=== PATIENT | male | born 1940 | race Caucasian/White ===

== ENCOUNTER 2018-08-18 17:13 | Observation (INO) | payer OTHER ==
[2018-08-18 18:07] LABS: #Eosinphils 0.5 thou/uL (0.0-0.7); #Lymphocytes 1.9 thou/uL (1.20-3.40); #Neutrophils 5.4 thou/uL (1.40-6.50); %Basophils 0.4 % (0.0-1.0); %Eosinophils 6.1 % (0.0-10.0); %Lymphocytes 21.5 % (21.0-51.0); %Neutrophils 61.1 % (42.0-75.0); Hemoglobin 15.9 g/dL (14.0-18.0); Mean Corpuscular HGB CONC 31.7 g/dL (32.0-36.0); Mean Corpuscular Hemoglobin 29.1 pg (27.0-31.0); Mean Platelet Volume 8.4 fL (7.4-10.4); Platelet Count 240 thou/uL (130-400); Red Blood Cell (RBC) Count 5.47 mill/uL (4.70-6.10); White Blood Cell (WBC) Count 8.8 thou/uL (4.8-10.8)
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
[2018-08-18 18:28] LABS: ALT (SGPT) 11 U/L (8-55); AST (SGOT) 14 U/L (5-34); Albumin 3.9 g/dL (3.4-4.8); Alkaline Phosphatase 86 U/L (40-150); Anion Gap 14 mmol/L (10-20); BUN (Urea Nitrogen) 15 mg/dL (8.4-25.7); Bilirubin, Total 0.5 mg/dL (0.2-1.2); Calc. Creatinine Clearance 0 mL/min (70-130); Calcium 9.5 mg/dL (7.8-10.44); Carbon Dioxide 24 mmol/L (23-31); Chloride 104 mmol/L (98-107); Estimated GFR-MDRD Greater than 90; Globulin 3.6 g/dL (2.4-3.5); Glucose 107 mg/dL (83-110); Magnesium 1.9 mg/dL (1.6-2.6); Protein, Total 7.5 g/dL (5.8-8.1); Sodium 138 mmol/L (136-145)
[2018-08-18] MEDS ORDERED: Ondansetron ODT 4 MG TAB SL PRN (21:41)
[2018-08-18] MEDS ORDERED: Ondansetron PF 4 MG/2 ML Vial IVP PRN (21:41)
[2018-08-18] MEDS ORDERED: Acetaminophen 325 MG TAB PO PRN (21:41)
[2018-08-18 21:52] VITALS: BMI 27.5
[2018-08-18 22:00] LABS: Troponin I Less than 0.010 ng/mL (< 0.028)
[2018-08-19 00:40] LABS: Troponin I 0.034 ng/mL (< 0.028)
[2018-08-19 03:40] LABS: #Basophils 0.1 thou/uL (0.0-0.2); #Eosinphils 0.5 thou/uL (0.0-0.7); #Lymphocytes 2.2 thou/uL (1.20-3.40); #Monocytes 1.1 thou/uL (0.11-0.59); #Neutrophils 4.7 thou/uL (1.40-6.50); %Basophils 0.7 % (0.0-1.0); %Eosinophils 5.6 % (0.0-10.0); %Lymphocytes 25.7 % (21.0-51.0); %Monocytes 12.4 % (0.0-10.0); %Neutrophils 55.6 % (42.0-75.0); Hemoglobin 15.6 g/dL (14.0-18.0); Mean Corpuscular HGB CONC 31.7 g/dL (32.0-36.0); Mean Corpuscular Hemoglobin 29.4 pg (27.0-31.0); Mean Corpuscular Volume 92.7 fL (78.0-98.0); Mean Platelet Volume 8.3 fL (7.4-10.4); Platelet Count 211 thou/uL (130-400); RBC Distribution Width 13.1 % (11.5-14.5); White Blood Cell (WBC) Count 8.5 thou/uL (4.8-10.8)
[2018-08-19 04:03] LABS: Anion Gap 9 mmol/L (10-20); BUN (Urea Nitrogen) 14 mg/dL (8.4-25.7); Calc. Creatinine Clearance 85 mL/min (70-130); Calcium 9.9 mg/dL (7.8-10.44); Carbon Dioxide 28 mmol/L (23-31); Chloride 105 mmol/L (98-107); Cholesterol 116 mg/dl (< 200 Desired); Estimated GFR-MDRD 86; Glucose 119 mg/dL (83-110); HDL Cholesterol 29 mg/dL (>60 Neg Risk); LDL Cholesterol, Calculated 64 mg/dL; Potassium 3.9 mmol/L (3.5-5.1); Sodium 138 mmol/L (136-145); Triglycerides 116 mg/dL (Less than 150); Troponin I 0.024 ng/mL (< 0.028)
[2018-08-19] MEDS ORDERED: PROVENTIL INHALER 6.7 G (200 INHALATIONS) INH PRN (09:27)
[2018-08-19] MEDS ORDERED: Regadenoson 0.4 MG/5 ML SYRINGE ONE (10:20)
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
--- NOTE | 2018-08-19 15:20 | NM ---
NM Cardiac Stress W EF WF HISTORY: Chest pain COMPARISON: None. FINDINGS: Examination is performed using 27 mCi 90 9M technetium sestamibi and stress and 10 on the r esting images. Shows a normal distribution of radiopharmaceutical without signs of ischemia or scar. Wall motion: Symmetric contractility of the ventricle. Left ventricular ejection fraction: The calculated left ventricular ejection fraction is 56%. Correla te with echocardiogram IMPRESSION: No evidence of ischemia.
[2018-08-19] MEDS: hydrALAZINE 20 MG/ML VIAL SLOW IVP PRN (17:02)
[2018-08-19] MEDS ORDERED: Mometasone 100 MCG HFA INHALER INH SCH (19:15)
[2018-08-19] MEDS ORDERED: Atorvastatin Calcium 10 MG TAB PO SCH (21:00)
[2018-08-19] MEDS ORDERED: Fluticasone Propionate HFA 110 MCG AER INH SCH (21:00)
[2018-08-19] MEDS ORDERED: Prevnar 13-Val Conj/PF 0.5 ML SYRINGE IM ONE (21:00)
[2018-08-19] MEDS ORDERED: Pravastatin Sodium 40 MG TAB PO SCH (21:00)
[2018-08-20 05:01] LABS: #Eosinphils 0.4 thou/uL (0.0-0.7); #Monocytes 1.2 thou/uL (0.11-0.59); #Neutrophils 6.3 thou/uL (1.40-6.50); %Basophils 0.3 % (0.0-1.0); %Eosinophils 4.3 % (0.0-10.0); %Lymphocytes 20.2 % (21.0-51.0); %Monocytes 12.3 % (0.0-10.0); %Neutrophils 62.9 % (42.0-75.0); Mean Corpuscular HGB CONC 31.2 g/dL (32.0-36.0); Mean Corpuscular Volume 92.9 fL (78.0-98.0); Mean Platelet Volume 8.7 fL (7.4-10.4); Platelet Count 213 thou/uL (130-400); RBC Distribution Width 13.3 % (11.5-14.5); Red Blood Cell (RBC) Count 5.51 mill/uL (4.70-6.10)
[2018-08-20 05:22] LABS: Anion Gap 13 mmol/L (10-20); BUN (Urea Nitrogen) 15 mg/dL (8.4-25.7); Calc. Creatinine Clearance 95 mL/min (70-130); Calcium 9.5 mg/dL (7.8-10.44); Carbon Dioxide 24 mmol/L (23-31); Chloride 105 mmol/L (98-107); Estimated GFR-MDRD Greater than 90; Glucose 107 mg/dL (83-110); Potassium 3.8 mmol/L (3.5-5.1); Sodium 138 mmol/L (136-145)
[2018-08-20] MEDS: Mometasone 100 MCG HFA INHALER INH SCH ×2 (06:37→20:10)
[2018-08-20] MEDS ORDERED: Aspirin 81 mg Enteric Coated Tablet PO SCH (09:00)
[2018-08-20] MEDS ORDERED: Loratadine 10 MG TAB PO SCH (09:00)
[2018-08-20] MEDS ORDERED: Lisinopril 20 MG TAB PO SCH (09:00)
[2018-08-20 11:52] VITALS: TEMP 97.8
[2018-08-20] MEDS: hydrALAZINE 20 MG/ML VIAL SLOW IVP PRN (15:31)
[2018-08-20 15:43] VITALS: BP 169/75
--- NOTE | 2018-08-20 16:56 | EKG ---
Test Reason : CP Blood Pressure : / mmHG Vent. Rate : 055 BPM Atrial Rate : 055 BPM P-R Int : 246 ms QRS Dur : 092 ms QT Int : 486 ms P-R-T Axes : 053 060 059 degrees QTc Int : 464 ms Sinus bradycardia with 1st degree A-V block Possible Anterior infarct , age undetermined Abnormal ECG Confirmed by YANI DUMONT DO ([id number]), publishing editor SIMON FERNANDEZ ([id number]) on 08/20/2018 4:56:17 PM Referred By: JULIA Confirmed By:YANI DUMONT DO
== END 2018-08-20 20:20 ==
LOC: EEVIPCON 17:13 → ERS 17:13 → 2NO 21:49
PROVIDERS: ADMIT Internal Medicine; ATTEND Internal Medicine
DX: R07.9 Chest pain, unspecified (principal); I10 Essential (primary) hypertension; J44.9 Chronic obstructive pulmonary disease, unspecified; H40.9 Unspecified glaucoma; I25.2 Old myocardial infarction; Z95.5 Presence of coronary angioplasty implant and graft; Z79.82 Long term (current) use of aspirin; Z79.899 Other long term (current) drug therapy
CPT/HCPCS: 36415; 71045; 78452; 80048; 80053; 80061; 83735; 83880; 84484; 85025; 93005; 93017; 93306; 96375; 96376; A9500; G0378; J0360; J2785

== ENCOUNTER 2019-08-03 16:43 | Emergency (ER) | payer OTHER ==
[2019-08-03 18:02] LABS: #Eosinphils 0.2 thou/uL (0.0-0.7); #Neutrophils 8.1 thou/uL (1.40-6.50); %Basophils 0.1 % (0.0-1.0); %Eosinophils 2.1 % (0.0-10.0); %Lymphocytes 17.5 % (21.0-51.0); %Monocytes 8.8 % (0.0-10.0); %Neutrophils 71.5 % (42.0-75.0); Hemoglobin 13.3 g/dL (14.0-18.0); Mean Corpuscular HGB CONC 32.8 g/dL (32.0-36.0); Mean Corpuscular Hemoglobin 29.1 pg (27.0-31.0); Mean Corpuscular Volume 88.9 fL (78.0-98.0); Platelet Count 365 thou/uL (130-400); RBC Distribution Width 13.1 % (11.5-14.5); Red Blood Cell (RBC) Count 4.56 mill/uL (4.70-6.10); White Blood Cell (WBC) Count 11.4 thou/uL (4.8-10.8)
[2019-08-03 18:07] LABS: PTT 34.9 sec (22.9-36.1)
[2019-08-03 18:14] LABS: INR-International Normal Ratio 1.2; Prothrombin Time 15.3 sec (12.0-14.7)
[2019-08-03 18:24] LABS: ALT (SGPT) 12 U/L (8-55); AST (SGOT) 17 U/L (5-34); Albumin 3.9 g/dL (3.4-4.8); Alkaline Phosphatase 83 U/L (40-110); Anion Gap 15 mmol/L (10-20); BUN (Urea Nitrogen) 17 mg/dL (8.4-25.7); Bilirubin, Total 0.5 mg/dL (0.2-1.2); Calc. Creatinine Clearance 0 mL/min (70-130); Calcium 9.3 mg/dL (7.8-10.44); Carbon Dioxide 24 mmol/L (23-31); Chloride 102 mmol/L (98-107); Estimated GFR-MDRD 48; Globulin 4.4 g/dL (2.4-3.5); Glucose 123 mg/dL (83-110); Potassium 4.2 mmol/L (3.5-5.1); Protein, Total 8.3 g/dL (5.8-8.1); Sodium 137 mmol/L (136-145)
[2019-08-03 19:13] LABS: Protein, Urine (Dipstick) > or equal to 300 mg/dL (Neg-Trace)
[2019-08-03 19:22] LABS: Clarity Opaque (Clear)
[2019-08-03 19:23] LABS: Bilirubin Unable to Interpret (Negative); Blood, Urine Large (Negative); Glucose, Urine (Dipstick) Unable to Interpret mg/dL (Negative); Leukocyte Unable to Interpret (Negative); Nitrite Unable to Interpret (Negative); Urobilinogen UNABLE TO INTERPRET mg/dL (Less than 2)
[2019-08-03 19:27] LABS: Bacteria/HPF None Seen HPF (None Seen); Squamous Epithelial None Seen HPF (0-3); WBC/HPF None Seen HPF (0-3)
--- NOTE | 2019-08-03 20:48 | ULT ---
TESTICULAR ULTRASOUND: 08/03/19 HISTORY: Scrotal pain. Real time imaging of the right and left testicles were performed. This is technically a difficult exa mination. There is scrotal wall thickening present. The right testicle is 3.8 cm in length. No mass. There is a right sided hydrocele. Epididymis region is unremarkable. The left testicle and epididymis are very difficult to visualize due to the testicle position and sha dowing from what is probably an inguinal hernia, although no peristalsis is seen in this region of sh adowing. Similar findings on the right side with probably also represent a hernia. DOPPLER EVALUATION WITH SPECTRAL ANALYSIS: Normal flow is shown to the right testicle and epididymis. It is very difficult to show flow to the l eft testicle. There is some minimal color flow shown. I believe that this is more likely related to t echnical factors than a true torsion, although this possibility is not excluded. IMPRESSION: 1. Right sided hydrocele. 2. Probable bilateral inguinal hernias. CT would be needed for confirmation. 3. Difficult to visualize left testicle. It is difficult to show flow as discussed above. I marissa victor hugo that this is probably technical in nature. POS: [facility]
== END 2019-08-04 00:50 ==
LOC: ERS 16:43
DX: K40.20 Bilateral inguinal hernia, without obstruction or gangrene, not specified as recurrent (principal); R31.9 Hematuria, unspecified; R33.9 Retention of urine, unspecified; N44.8 Other noninflammatory disorders of the testis; I10 Essential (primary) hypertension; J44.9 Chronic obstructive pulmonary disease, unspecified; I25.2 Old myocardial infarction; Z79.82 Long term (current) use of aspirin; Z79.899 Other long term (current) drug therapy
CPT/HCPCS: 36415; 51702; 76870; 80053; 81003; 81015; 85025; 85610; 85730; 86850; 86900; 86901; 87086; 93976